=== PATIENT | female | born 1995 | race Caucasian/White ===

== ENCOUNTER 2016-07-09 21:54 | Emergency (ER) | payer SELFPAY ==
--- NOTE | 2016-07-09 23:57 | ED CLINICAL REPORT ---
Clinical Report - Physicians/Mid Levels [facility] [address] [place] [address] 07/09/2016 21:56 Patient: BRIAN BROWN Time Seen: 22:40. Arrived- By private vehicle. Historian- patient. HISTORY OF PRESENT ILLNESS Chief Complaint: DIARRHEA. NAUSEA. This started about 3 days ago and is still present. It was abrupt in onset and has been intermittent and waxing/waning. No recent travel. She has had nausea. No vomiting, black stools, bloody stools, history of possible bad food exposure or known contact with a sick individual. She has had loose stools (green). This has occurred numerous times. Has not recently been camping or on antibiotics. The illness is described as moderate. REVIEW OF SYSTEMS Last normal menstrual period- 6 weeks ago. 3. Para 2. No contraception. She has had chills and palpitations. No fever, sweats, calf pain, chest pain or cough. No difficulty breathing or pedal edema. She has had mild pain with urination. All systems otherwise negative, except as recorded above. PAST HISTORY PCP - None. Additional Surgeries: no known surgeries. Medications: None. Allergies: Penicillins. SOCIAL HISTORY Never smoker. No alcohol use or drug use. FAMILY HISTORY multiple family members with gallstones. ADDITIONAL NOTES The nursing notes have been reviewed. PHYSICAL EXAM Vital Signs: 07/09/2016 22:26 BP: 124/78. HR: 100. RR: 18. O2 saturation: 99%. Temp: 98.8 F. Pain level now: 4/10. Have been reviewed. Appearance: Alert. Eyes: Pupils equal, round and reactive to light. ENT: Pharynx normal. Neck: Normal inspection. Neck supple. CVS: Normal heart rate and rhythm. Heart sounds normal. Pulses normal. Respiratory: No respiratory distress. Breath sounds normal. Abdomen: Soft and nontender. Bowel sounds normal. No organomegaly. No mass. Back: Normal inspection. No CVA tenderness. Skin: Skin warm and dry. Normal skin color. Normal skin turgor. Extremities: Extremities exhibit normal ROM. No calf tenderness. No lower extremity edema. LABS, X-RAYS, AND EKG Laboratory Tests: UA-Culture if indicated: (BRENDON: 07/09/2016 22:50) ( [facility] 07/09/2016 23:11) Final results Test Result Flag Units (Reference) URINE COLOR YELLOW URINE APPEARANCE CLEAR URINE GLUCOSE NEGATIVE (NEGATIVE) URINE BILIRUBIN NEGATIVE (NEGATIVE) URINE KETONE NEGATIVE (NEGATIVE) URINE SPECIFIC GRAVITY >= 1.030 (1.010-1.030) URINE PH 6.0 (5.0-8.0) URINE PROTEIN TRACE (NEGATIVE) URINE UROBILINOGEN 0.2 EU/dL (0.2-1.0) URINE NITRITE NEGATIVE (NEGATIVE) URINE BLOOD NEGATIVE (NEGATIVE) URINE LEUK ESTERASE NEGATIVE (NEGATIVE) URINE RBC 0-1 rbc/hpf (0-1) URINE WBC 0-1 wbc/hpf (0-1) URINE EPITHELIAL CELLS 0-1 EPI/hpf (0-5) URINE BACTERIA TRACE (<1+) (NONE SEEN) URINE COMMENT CULT NOT INDICATED URINE CULTURES ARE SET-UP BASED ON THE FOLLOWING CRITERIA:POSITIVE NITRITEPOSITIVE LEUKOCYTE ESTERASEGREATER THAN 10 WHITE BLOOD CELLSMODERATE (2+) OR GREATER BACTERIA Urine: (BRENDON: 07/09/2016 22:50) ( [facility] 07/09/2016 23:07) Final results Test Result Flag Units (Reference) URINE POSITIVE CBC w Diff: (BRENDON: 07/09/2016 22:50) ( [facility] 07/09/2016 23:12) Final results Test Result Flag Units (Reference) WHITE BLOOD COUNT 6.6 K/uL (4.5-11.5) RED BLOOD COUNT 5.41 H M/uL (4.00-5.20) HEMOGLOBIN 14.3 gm/dL (12.0-16.0) HEMATOCRIT 43.1 % (36.0-46.0) MEAN CELL VOLUME 80 fL (80-100) MEAN CORPUSCULAR HGB 27 pg (26-34) MEAN CORPUSCULAR HGB CONC 33 g/dL (31-37) RED CELL DISTRIBUTION WIDTH 14.2 % (11.6-14.8) PLATELET COUNT 249 K/uL (150-400) LYMPH % 24.4 L % (25-40) MONO % 3.4 % (3-14) GRANULOCYTE % 72.2 (53-90) CMP: (BRENDON: 07/09/2016 22:50) ( MsgRcvd 07/09/2016 23:18) Final results Test Result Flag Units (Reference) GLUCOSE 89 mg/dL (70-110) BUN 17 mg/dL (7-18) CREATININE 0.9 mg/dL (0.6-1.3) Estimated GFR >60 mL/min Estimated GFR- >60 mL/min Note: Persistent reduction over 3 months in eGFR<60 mL/min/1.73 m2 defines CKD. Patients with eGFR values>=60 mL/min/1.73 m2 may also have CKD if evidence ofpersistent proteinuria. Additional information may be foundat www.kidney.org. SODIUM 138 mmol/L (136-145) POTASSIUM 3.6 mmol/L (3.5-5.1) CHLORIDE 102 mmol/L (98-107) CARBON DIOXIDE 23 mmol/L (21-32) CALCIUM 9.0 mg/dL (8.5-10.1) TOTAL PROTEIN 8.3 H g/dL (6.4-8.2) ALBUMIN 3.9 g/dL (3.3-5.0) BILIRUBIN, TOTAL 0.3 mg/dL (0.0-1.0) ALKALINE PHOSPHATASE 75 U/L (46-116) AST (SGOT) 7 L U/L (15-37) ALT (SGPT) 23 U/L (12-78) LIPASE 127 U/L (73-393) AMYLASE 37 U/L (25-115) . PROGRESS AND PROCEDURES Course of Care: Patient is stable. Patient/family counseled. Old medical records ordered. Old records unavailable. Disposition: Discharged. Condition: stable. CLINICAL IMPRESSION Diarrhea ; positive test in emergency department. INSTRUCTIONS Drink plenty of fluids. No alcohol. (collect stool samples and return them to the lab as discussed. Follow up the results of these studies at the [facility] as discussed.). Warnings: Further evaluation is necessary. GENERAL WARNINGS: Return or contact your physician immediately if your condition worsens or changes unexpectedly, if not improving as expected, or if other problems arise. Prescription Medications: Zofran 4 mg: Take 1 orally every six hours as needed for nausea/vomiting. Dispense ten (10). No refills. Substitution is permissible. vitamins: Take 1 orally every day. Dispense thirty (30). No refils. Substitution is permissible. (with folate) Follow-up: Follow up with an logistics planning manager Contact [facility] to arrange for your care is discussed. Call for the next available appointment. Understanding of the discharge instructions verbalized by patient. Follow-up with: [facility], , , [address], [facility], [address] Follow up Wednesday in four days. Call for an appointment. (Electronically signed by Cornelio Sparrow MD 07/10/2016 3:36)
--- NOTE | 2016-07-09 23:57 | ED NURSING NOTES ---
Clinical Report - Nurses [facility] [address] [place] [address] 07/09/2016 21:56 Patient: BRIAN BROWN TRIAGE Triage time 22:Jul 09 2016. Acuity: LEVEL 3. Chief Complaint: ABDOMINAL PAIN. 22:25 07/09/16. SEPSIS SCREEN: Sepsis Screen. Negative (no infection suspected/documented). --22:31 Kassidy Kaplan R.N. 22:26 07/09/16. BP: 124/78. HR: 100. RR: 18. O2 saturation: 99%. Temp: 98.8 F. Pain level now: 08/10. --22:31 Kassidy Kaplan R.N. Weight: 90.7 kg stated. Height/Length: 65 inches Per Patient. BMI: 33.3. --22:25 Kassidy Kaplan R.N. Medications None. --22:28 Kassidy Kaplan R.N. Allergies Penicillins. --22:28 Kassidy Kaplan R.N. Medication/allergy information source: the patient. --22:31 Kassidy Kaplan R.N. History Arrived by private vehicle. Historian: patient. Accompanied by family. Onset. (4 days ago). She has had nausea and abdominal pain. She has had diarrhea (state stool is neon green). No vomiting. Treatment RESEARCH RN SPEC: None. PAST MEDICAL HX: Last normal menstrual period- unknown LMP. 2. Para 2. Sexual history - sexually active. No contraception. Currently . SOCIAL HX: Never smoker. Occasional alcohol use. No drug use. No recent travel. No infectious disease exposure. No known contact with a sick individual. ABUSE ASSESSMENT: No report of abuse. FALL RISK ASSESSMENT: Fall risk assessment completed. No fall risk identified. NUTRITIONAL RISK ASSESSMENT: The nutritional risk assessment revealed no deficiencies. FUNCTIONAL ASSESSMENT: Functional assessment: no impairments noted. LEARNING NEEDS ASSESSMENT: The learning needs assessment revealed no barriers. SKIN INTEGRITY ASSESSMENT: Skin integrity risk assessment completed. No skin integrity risk identified. --22:31 Kassidy Kaplan R.N. PROBLEMS: no known problems. ADDITIONAL SURGERIES: no known surgeries. Interventions ID band on patient. --22:31 Kassidy Kaplan R.N. PHYSICAL ASSESSMENT 22:30 07/09/16. Ambulatory to room. GENERAL / NEURO / PSYCH: Alert. Oriented X 4. Appears in no acute distress. HEENT: Mucous membranes are pink. RESPIRATORY: Respirations not labored. Breath sounds within normal limits. CVS: Capillary refill less than 2 seconds. GI / : The patient has had nausea. Obesity. Abdomen soft. Abdominal tenderness diffusely. No guarding or rebound tenderness. Abnormal bowel sounds present. No rebound tenderness or mass present in the abdominal region. No emesis noted. Abnormal stool color. Stool color is abnormal (states bright neon green). SKIN: Skin is warm and dry. --23:01 Kassidy Kaplan R.N. NURSING PROGRESS NOTES 22:26 07/09/16. The initial plan of care for this patient includes an assessment with efforts to address comfort measures; the presence of pain; impairment of the gastrointestinal system. This plan of care was discussed with the patient. Patient gowned. Reassurance given. Two patient identifiers checked. Call light placed in reach. Side rails up x 1. Bed placed in lowest position. Brakes of bed on. Patient ready for evaluation- ED physician notified. --22:58 Kassidy Kaplan R.N. 22:50 07/09/2016 Site #1 started via IV in the right antecubital space with an 20g angiocath, with aseptic technique and good blood return; one attempt. Blood drawn: rainbow set. Labeled in the presence of the patient and sent to the lab. Saline lock flushed with 10 mL saline. --22:59 Kassidy Kaplan R.N. 22:50 07/09/16. Patient ID band checked for patient name and birthdate: patient confirmed. Instructions provided to collect clean catch urine and patient verbalized understanding. Clean catch urine collected with return of adrienne-colored clear urine; sample sent to lab for urinalysis and HCG. Specimen labeled in the presence of the patient. --22:59 Kassidy Kaplan R.N. 22:55 07/09/2016 Started bag #1 1000 mL IV Fluids IV NS (Saline); at 1000 mL/hr over 30 minute(s) via site #1 via IV pump. Allergies verified and confirmed 5 rights. IV patency established. IV site checked: no pain, redness, or swelling. IV flushed thoroughly pre- and post-medication administration. --23:00 Kassidy Kaplan R.N. 23:21 07/09/2016 IV Fluids IV NS via IV site #1 Rate Changed: bag #1 decreased to 125 mL/hr via IV pump. IV patency established. IV site checked: no pain, redness, or swelling. IV flushed thoroughly. Confirmed 5 Rights. --23:21 Kassidy Kaplan R.N. 23:59 07/09/16. The patient is calm and resting quietly. Overall patient status is the same- she states feels the same. --23:59 Kassidy Kaplan R.N. 00:13 07/10/2016 Site #1 removed upon discharge. Catheter intact. Bandaid applied. --00:13 Kassidy Kaplan R.N. 00:13 07/10/2016 IV Fluids IV NS Discontinued: bag #1 discontinued upon discharge. Total amount infused: 600 mL. IV patency established. IV site checked: no pain, redness, or swelling. IV flushed thoroughly. --00:13 Kassidy Kaplan R.N. DISPOSITION / DISCHARGE 00:14 07/10/16. Condition at departure: improved and stable. No learning barriers present. Discharge instructions provided and reviewed with the patient. Reviewed medication(s) side effects, precautions, dosing and course information. Prescription(s) given to the patient. Reviewed referral to a mental health technician and primary care physician for followup and testing. Summary of care provided to patient via paper. Patient verbalized understanding. Written instructions provided in [place] Korean. The patient was discharged home and accompanied by note specialist. She left the Emergency Department ambulatory and via private vehicle. Artistic Director driving. FALL RISK ASSESSMENT: Fall risk assessment completed. No fall risk identified. --00:14 Kassidy Kaplan R.N. 23:59 07/09/16. BP: 107/66. HR: 100. RR: 18. O2 saturation: 100%. Temp: 98.8 F. Pain level now: 08/10. 22:26 07/09/16. BP: 124/78. HR: 100. RR: 18. O2 saturation: 99%. Temp: 98.8 F. Pain level now: 08/10. --00:14 Kassidy Kaplan R.N. Departure time: 00:14 Jul 10 2016. --00:14 Kassidy Kaplan R.N. Locked/Released at 07/10/2016 0:14 by Kassidy Kaplan R.N.
--- NOTE | 2016-07-09 23:57 | ED ORDER SUMMARY ---
..... Patient: BRIAN BROWN OrderSheet [facility] VisitID: [id number] [place] [address] 21y, F Registration Date/Time: 07/09/2016 ORDER SHEET Weight: 90.7 kg (stated) Allergies: Penicillins GENERAL ORDERS: CBC w Diff Urgent (22:36 07/09/2016 Jamila SIGALA) (Ack 22:42 [facility] [employer] Head Inspector And Adjuster) (22:59 EInderbitzen R.N.) CMP Urgent (22:36 07/09/2016 Jamila SIGALA) (Ack 22:42 Stephanie [facility] [employer] Inspector [employer] Adjuster) (22:59 EInderbitzen R.N.) UA-Culture if indicated Urgent (22:36 07/09/2016 Jamila SIGALA) (Ack 22:42 Stephanie [facility] [employer] Inspector And Adjuster) (22:59 EInderbitzen R.N.) Amylase Urgent (22:36 07/09/2016 Jamila SIGALA) (Ack 22:42 Stephanie ER [employer] Inspector [employer] Adjuster) (22:59 EInderbitzen R.N.) Lipase Urgent (22:36 07/09/2016 Jamila SIGALA) (Ack 22:42 Stephanie ER [employer] Head Inspector And Adjuster) (22:59 EInderbitzen R.N.) Urine Urgent (22:36 07/09/2016 Jamila SIGALA) (Ack 22:42 [facility] [employer] Inspector And Adjuster) (22:59 EInderbitzen R.N.) Serum Quantitative Urgent (23:16 07/09/2016 EInderbitzen R.N. verbal order read back to Jamila SIGALA) (23:19 CH[facility]ty [facility] [employer] Head Inspector And Adjuster) MEDICATION ORDERS: IV FLUIDS: IV Saline Lock (22:36 07/09/2016 Jamila SIGALA) (22:59 EInderbitzen R.N.) IV NS : initial bolus 500 mL (1000 mL/hr), then 125 mL/hr for 4h (NOW); Urgent (22:36 07/09/2016 Jamila SIGALA) (23:00 EInderbitzen R.N.) ORDER SHEET NOTES: [Electronically signed by Kassidy Kaplan R.N. (00:14 07/10/2016)] [Electronically signed by Cornelio Sparrow MD (03:36 07/10/2016)] [Electronically locked/signed by Kassidy Kaplan R.N. (00:14 07/10/2016)]
--- NOTE | 2016-07-09 23:57 | ED NURSING NOTES ---
Clinical Report - Nurses [facility] [address] [place] [place] [address] 07/09/2016 21:56 Patient: BRIAN BROWN TRIAGE Triage time 22:Jul 09 2016. Acuity: LEVEL 3. Chief Complaint: ABDOMINAL PAIN. 22:25 07/09/16. SEPSIS SCREEN: Sepsis Screen. Negative (no infection suspected/documented). --22:31 Kassidy Kaplan R.N. 22:26 07/09/16. BP: 124/78. HR: 100. RR: 18. O2 saturation: 99%. Temp: 98.8 F. Pain level now: 08/10. --22:31 Kassidy Kaplan R.N. Weight: 90.7 kg stated. Height/Length: 65 inches Per Patient. BMI: 33.3. --22:25 Kassidy Kaplan R.N. Medications None. --22:28 Kassidy Kaplan R.N. Allergies Penicillins. --22:28 Kassidy Kaplan R.N. Medication/allergy information source: the patient. --22:31 Kassidy Kaplan R.N. History Arrived by private vehicle. Historian: patient. Accompanied by family. Onset. (4 days ago). She has had nausea and abdominal pain. She has had diarrhea (state stool is neon green). No vomiting. 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 PAST MEDICAL HX: Last normal menstrual period- unknown LMP. 2. Para 2. Sexual history - sexually active. No contraception. Currently . SOCIAL HX: Never smoker. Occasional alcohol use. No drug use. No recent travel. No infectious disease exposure. No known contact with a sick individual. ABUSE ASSESSMENT: No report of abuse. FALL RISK ASSESSMENT: Fall risk assessment completed. No fall risk identified. NUTRITIONAL RISK ASSESSMENT: The nutritional risk assessment revealed no deficiencies. FUNCTIONAL ASSESSMENT: Functional assessment: no impairments noted. LEARNING NEEDS ASSESSMENT: The learning needs assessment revealed no barriers. SKIN INTEGRITY ASSESSMENT: Skin integrity risk assessment completed. No skin integrity risk identified. --22:31 Kassidy Kaplan R.N. PROBLEMS: no known problems. ADDITIONAL SURGERIES: no known surgeries. Interventions ID band on patient. --22:31 Kassidy Kaplan R.N. PHYSICAL ASSESSMENT 22:30 07/09/16. Ambulatory to room. GENERAL / NEURO / PSYCH: Alert. Oriented X 4. Appears in no acute distress. HEENT: Mucous membranes are pink. RESPIRATORY: Respirations not labored. Breath sounds within normal limits. CVS: Capillary refill less than 2 seconds. GI / : The patient has had nausea. Obesity. Abdomen soft. Abdominal tenderness diffusely. No guarding or rebound tenderness. Abnormal bowel sounds present. No rebound tenderness or mass present in the abdominal region. No emesis noted. Abnormal stool color. Stool color is abnormal (states bright neon green). SKIN: Skin is warm and dry. --23:01 Kassidy Kaplan R.N. NURSING PROGRESS NOTES 22:26 07/09/16. The initial plan of care for this patient includes an assessment with efforts to address comfort measures; the presence of pain; impairment of the gastrointestinal system. This plan of care was discussed with the patient. Patient gowned. Reassurance given. Two patient identifiers checked. Call light placed in reach. Side rails up x 1. Bed placed in lowest position. Brakes of bed on. Patient ready for evaluation- ED physician notified. --22:58 Kassidy Kaplan R.N. 22:50 07/09/2016 Site #1 started via IV in the right antecubital space with an 20g angiocath, with aseptic technique and good blood return; one attempt. Blood drawn: rainbow set. Labeled in the presence of the patient and sent to the lab. Saline lock flushed with 10 mL saline. --22:59 Kassidy Kaplan R.N. 22:50 07/09/16. Patient ID band checked for patient name and birthdate: patient confirmed. Instructions provided to collect clean catch urine and patient verbalized understanding. Clean catch urine collected with return of adrienne-colored clear urine; sample sent to lab for urinalysis and HCG. Specimen labeled in the presence of the patient. --22:59 Kassidy Kaplan R.N. 22:55 07/09/2016 Started bag #1 1000 mL IV Fluids IV NS (Saline); at 1000 mL/hr over 30 minute(s) via site #1 via IV pump. Allergies verified and confirmed 5 rights. IV patency established. IV site checked: no pain, redness, or swelling. IV flushed thoroughly pre- and post-medication administration. --23:00 Kassidy Kaplan R.N. 23:21 07/09/2016 IV Fluids IV NS via IV site #1 Rate Changed: bag #1 decreased to 125 mL/hr via IV pump. IV patency established. IV site checked: no pain, redness, or swelling. IV flushed thoroughly. Confirmed 5 Rights. --23:21 Kassidy Kaplan R.N. 23:59 07/09/16. The patient is calm and resting quietly. Overall patient status is the same- she states feels the same. --23:59 Kassidy Kaplan R.N. 00:13 07/10/2016 Site #1 removed upon discharge. Catheter intact. Bandaid applied. --00:13 Kassidy Kaplan R.N. 00:13 07/10/2016 IV Fluids IV NS Discontinued: bag #1 discontinued upon discharge. Total amount infused: 600 mL. IV patency established. IV site checked: no pain, redness, or swelling. IV flushed thoroughly. --00:13 Kassidy Kaplan R.N. DISPOSITION / DISCHARGE 00:14 07/10/16. Condition at departure: improved and stable. No learning barriers present. Discharge instructions provided and reviewed with the patient. Reviewed medication(s) side effects, precautions, dosing and course information. Prescription(s) given to the patient. Reviewed referral to a professor/nurse anesthetist and primary care physician for followup and testing. Summary of care provided to patient via paper. Patient verbalized understanding. Written instructions provided in [place] Islander. The patient was discharged home and accompanied by clinical education coordinator. She left the Emergency Department ambulatory and via private vehicle. Coffee Weigher driving. FALL RISK ASSESSMENT: Fall risk assessment completed. No fall risk identified. --00:14 Kassidy Kaplan R.N. 23:59 07/09/16. BP: 107/66. HR: 100. RR: 18. O2 saturation: 100%. Temp: 98.8 F. Pain level now: 08/10. 22:26 07/09/16. BP: 124/78. HR: 100. RR: 18. O2 saturation: 99%. Temp: 98.8 F. Pain level now: 08/10. --00:14 Kassidy Kaplan R.N. Departure time: 00:14 Jul 10 2016. --00:14 Kassidy Kaplan R.N. Locked/Released at 07/10/2016 0:14 by Kassidy Kaplan R.N.
--- NOTE | 2016-07-09 23:57 | ED ORDER SUMMARY ---
..... Patient: BRIAN BROWN OrderSheet [facility] VisitID: [id number] [place] [address] 21y, F Registration Date/Time: 07/09/2016 ORDER SHEET Weight: 90.7 kg (stated) Allergies: Penicillins GENERAL ORDERS: CBC w Diff Urgent (22:36 07/09/2016 Jamila SIGALA) (Ack 22:42 [facility] [employer] Intel Planner) (22:59 EInderbitzen R.N.) CMP Urgent (22:36 07/09/2016 Jamila SIGALA) (Ack 22:42 Stephanie ER [employer] Planner) (22:59 EInderbitzen R.N.) UA-Culture if indicated Urgent (22:36 07/09/2016 Jamila SIGALA) (Ack 22:42 Stephanie ER [employer] Planner) (22:59 EInderbitzen R.N.) Amylase Urgent (22:36 07/09/2016 Jamila SIGALA) (Ack 22:42 Stephanie ER [employer] Planner) (22:59 EInderbitzen R.N.) Lipase Urgent (22:36 07/09/2016 Jamila SIGALA) (Ack 22:42 Stephanie ER [employer] Planner) (22:59 EInderbitzen R.N.) Urine Urgent (22:36 07/09/2016 Jamila SIGALA) (Ack 22:42 [facility] [employer] Planner) (22:59 EInderbitzen R.N.) Serum Quantitative Urgent (23:16 07/09/2016 EInderbitzen R.N. verbal order read back to Jamila SIGALA) (23:19 CHagerty ER [employer] Planner) MEDICATION ORDERS: IV FLUIDS: IV Saline Lock (22:36 07/09/2016 Jamila SIGALA) (22:59 EInderbitzen R.N.) IV NS : initial bolus 500 mL (1000 mL/hr), then 125 mL/hr for 4h (NOW); Urgent (22:36 07/09/2016 Jamila SIGALA) (23:00 EInderbitzen R.N.) ORDER SHEET NOTES: [Electronically signed by Kassidy Kaplan R.N. (00:14 07/10/2016)] [Electronically signed by Cornelio Sparrow MD (03:36 07/10/2016)] [Electronically locked/signed by Kassidy Kaplan R.N. (00:14 07/10/2016)]
--- NOTE | 2016-07-09 23:57 | ED CLINICAL REPORT ---
Clinical Report - Physicians/Mid Levels [facility] [address] [place] [address] 07/09/2016 21:56 Patient: BRIAN BROWN Time Seen: 22:40. Arrived- By private vehicle. Historian- patient. HISTORY OF PRESENT ILLNESS Chief Complaint: DIARRHEA. NAUSEA. This started about 3 days ago and is still present. It was abrupt in onset and has been intermittent and waxing/waning. No recent travel. She has had nausea. No vomiting, black stools, bloody stools, history of possible bad food exposure or known contact with a sick individual. She has had loose stools (green). This has occurred numerous times. Has not recently been camping or on antibiotics. The illness is described as moderate. REVIEW OF SYSTEMS Last normal menstrual period- 6 weeks ago. 3. Para 2. No contraception. She has had chills and palpitations. No fever, sweats, calf pain, chest pain or cough. No difficulty breathing or pedal edema. She has had mild pain with urination. All systems otherwise negative, except as recorded above. PAST HISTORY PCP - None. Additional Surgeries: no known surgeries. Medications: None. Allergies: Penicillins. SOCIAL HISTORY Never smoker. No alcohol use or drug use. FAMILY HISTORY multiple family members with gallstones. ADDITIONAL NOTES The nursing notes have been reviewed. PHYSICAL EXAM Vital Signs: 07/09/2016 22:26 BP: 124/78. HR: 100. RR: 18. O2 saturation: 99%. Temp: 98.8 F. Pain level now: 4/10. Have been reviewed. Appearance: Alert. Eyes: Pupils equal, round and reactive to light. ENT: Pharynx normal. Neck: Normal inspection. Neck supple. CVS: Normal heart rate and rhythm. Heart sounds normal. Pulses normal. Respiratory: No respiratory distress. Breath sounds normal. Abdomen: Soft and nontender. Bowel sounds normal. No organomegaly. No mass. Back: Normal inspection. No CVA tenderness. Skin: Skin warm and dry. Normal skin color. Normal skin turgor. Extremities: Extremities exhibit normal ROM. No calf tenderness. No lower extremity edema. LABS, X-RAYS, AND EKG Laboratory Tests: UA-Culture if indicated: (BRENDON: 07/09/2016 22:50) ( [facility]/09/2016 23:11) Final results Test Result Flag Units (Reference) URINE COLOR YELLOW URINE APPEARANCE CLEAR URINE GLUCOSE NEGATIVE (NEGATIVE) URINE BILIRUBIN NEGATIVE (NEGATIVE) URINE KETONE NEGATIVE (NEGATIVE) URINE SPECIFIC GRAVITY >= 1.030 (1.010-1.030) URINE PH 6.0 (5.0-8.0) URINE PROTEIN TRACE (NEGATIVE) URINE UROBILINOGEN 0.2 EU/dL (0.2-1.0) URINE NITRITE NEGATIVE (NEGATIVE) URINE BLOOD NEGATIVE (NEGATIVE) URINE LEUK ESTERASE NEGATIVE (NEGATIVE) URINE RBC 0-1 rbc/hpf (0-1) URINE WBC 0-1 wbc/hpf (0-1) URINE EPITHELIAL CELLS 0-1 EPI/hpf (0-5) URINE BACTERIA TRACE (<1+) (NONE SEEN) URINE COMMENT CULT NOT INDICATED URINE CULTURES ARE SET-UP BASED ON THE FOLLOWING CRITERIA:POSITIVE NITRITEPOSITIVE LEUKOCYTE ESTERASEGREATER THAN 10 WHITE BLOOD CELLSMODERATE (2+) OR GREATER BACTERIA Urine: (BRENDON: 07/09/2016 22:50) ( [facility] 07/09/2016 23:07) Final results Test Result Flag Units (Reference) URINE POSITIVE CBC w Diff: (BRENDON: 07/09/2016 22:50) ( [facility] 07/09/2016 23:12) Final results Test Result Flag Units (Reference) WHITE BLOOD COUNT 6.6 K/uL (4.5-11.5) RED BLOOD COUNT 5.41 H M/uL (4.00-5.20) HEMOGLOBIN 14.3 gm/dL (12.0-16.0) HEMATOCRIT 43.1 % (36.0-46.0) MEAN CELL VOLUME 80 fL (80-100) MEAN CORPUSCULAR HGB 27 pg (26-34) MEAN CORPUSCULAR HGB CONC 33 g/dL (31-37) RED CELL DISTRIBUTION WIDTH 14.2 % (11.6-14.8) PLATELET COUNT 249 K/uL (150-400) LYMPH % 24.4 L % (25-40) MONO % 3.4 % (3-14) GRANULOCYTE % 72.2 (53-90) CMP: (BRENDON: 07/09/2016 22:50) ( MsgRcvd 07/09/2016 23:18) Final results Test Result Flag Units (Reference) GLUCOSE 89 mg/dL (70-110) BUN 17 mg/dL (7-18) CREATININE 0.9 mg/dL (0.6-1.3) Estimated GFR >60 mL/min Estimated GFR- >60 mL/min Note: Persistent reduction over 3 months in eGFR<60 mL/min/1.73 m2 defines CKD. Patients with eGFR values>=60 mL/min/1.73 m2 may also have CKD if evidence ofpersistent proteinuria. Additional information may be foundat www.[email or web address].org. SODIUM 138 mmol/L (136-145) POTASSIUM 3.6 mmol/L (3.5-5.1) CHLORIDE 102 mmol/L (98-107) CARBON DIOXIDE 23 mmol/L (21-32) CALCIUM 9.0 mg/dL (8.5-10.1) TOTAL PROTEIN 8.3 H g/dL (6.4-8.2) ALBUMIN 3.9 g/dL (3.3-5.0) BILIRUBIN, TOTAL 0.3 mg/dL (0.0-1.0) ALKALINE PHOSPHATASE 75 U/L (46-116) AST (SGOT) 7 L U/L (15-37) ALT (SGPT) 23 U/L (12-78) LIPASE 127 U/L (73-393) AMYLASE 37 U/L (25-115) . PROGRESS AND PROCEDURES Course of Care: Patient is stable. Patient/family counseled. Old medical records ordered. Old records unavailable. Disposition: Discharged. Condition: stable. CLINICAL IMPRESSION Diarrhea ; positive test in emergency department. INSTRUCTIONS Drink plenty of fluids. No alcohol. (collect stool samples and return them to the lab as discussed. [facility] Warnings: Further evaluation is necessary. GENERAL WARNINGS: Return or contact your physician immediately if your condition worsens or changes unexpectedly, if not improving as expected, or if other problems arise. Prescription Medications: Zofran 4 mg: Take 1 orally every six hours as needed for nausea/vomiting. Dispense ten (10). No refills. Substitution is permissible. vitamins: Take 1 orally every day. Dispense thirty (30). No refils. Substitution is permissible. (with folate) Follow-up: Follow up with an oxide furnace tender Contact [facility] to arrange for your care is discussed. Call for the next available appointment. Understanding of the discharge instructions verbalized by patient. Follow-up with: [facility], , , [address], [place], [id number] Follow up Wednesday in four days. Call for an appointment. (Electronically signed by Cornelio Sparrow MD 07/10/2016 3:36)
--- NOTE | 2016-07-10 03:36 | ED DISCHARGE INSTRUCTIONS ---
Patient: BRIAN BROWN General Instructions [facility] VisitID: [id number] [address] [place] [address] 21y, F Registration Date/Time: 07/09/2016 Diarrhea ; positive test in emergency department. INSTRUCTIONS Drink plenty of fluids. No alcohol. (collect stool samples and return them to the lab as discussed. Follow up the results of these studies at the [facility] as discussed.). Warnings: Further evaluation is necessary. GENERAL WARNINGS: Return or contact your physician immediately if your condition worsens or changes unexpectedly, if not improving as expected, or if other problems arise. Prescription Medications: Zofran 4 mg: Take 1 orally every six hours as needed for nausea/vomiting. Dispense ten (10). No refills. Substitution is permissible. vitamins: Take 1 orally every day. Dispense thirty (30). No refils. Substitution is permissible. (with folate) Follow-up: Follow up with an utility tractor operator Contact [facility] to arrange for your care is discussed. Call for the next available appointment. Understanding of the discharge instructions verbalized by patient. Follow-up with: [facility], , , [address], [place], [id number] Follow up Wednesday in four days. Call for an appointment. ADDITIONAL INFORMATION Diarrhea, Uncertain Cause (Adult, Report Pending) Diarrhea has several possible causes. Commonstomach fluis caused by a virus. Food poisoning, bacteria or parasites are other causes for diarrhea. Only diarrhea caused by bacteria or parasites requires treatment with an antibiotic. Diarrhea from a virus or food poisoning improves with simple home treatment. A stool sample is needed to make the diagnosis of an infection with bacteria or parasites. Up to three stool specimens may be required to diagnose This may take up to two days to get the result. It may be necessary to wait until the stool test is complete to make the diagnosis and select the best antibiotic to prescribe. Home Care: If symptoms are severe, rest at home for the next 24 hours or until you are feeling better. You may use acetaminophen (Tylenol) or ibuprofen (Motrin, Advil) to control fever, unless another medicine was prescribed. [NOTE: If you have chronic liver or kidney disease or ever had a stomach ulcer or GI bleeding, talk with your doctor before using these medicines.] (Aspirin should never be used in anyone under 18 years of age who is ill with a fever. It may cause severe liver damage.) Avoid tobacco, caffeine and alcohol, which may worsen your symptoms. If anti-diarrhea medicine was prescribed, take this only as directed. Sometimes anti-diarrhea medicine can make your condition worse if the cause is an infectious diarrhea. Therefore, anti-diarrhea medicine should not be taken for this condition unless advised by your doctor. During The First 12-24 Hours follow the diet below: BEVERAGES: Sport drinks like Gatorade, soft drinks without caffeine; vikram erick, mineral water (plain or flavored), decaffeinated tea and coffee. SOUPS: Clear broth, consomm and bouillon DESSERTS: Plain gelatin (Jell-O), popsicles and fruit juice bars. During The Next 24 Hours you may add the following to the above: Hot cereal, plain toast, bread, rolls, crackers Plain noodles, rice, mashed potatoes, chicken noodle or rice soup Unsweetened canned fruit (avoid pineapple), bananas Limit fat intake to less than 15 grams per day by avoiding margarine, butter, oils, mayonnaise, sauces, gravies, fried foods, peanut butter, meat, poultry and fish. Limit fiber; avoid raw or cooked vegetables, fresh fruits (except bananas) and bran cereals. Limit caffeine and chocolate. No spices or seasonings except salt. During The Next 24 Hours Gradually resume a normal diet, as you feel better and your symptoms lessen. Follow Up with your doctor or as advised if you are not improving over the next two days. If you were asked to bring a specimen from home, bring the sample on the day of collection. You may call in 2 days (or as directed) for the results. Get Prompt Medical Attention if any of the following occur: Increasing abdominal pain or constant lower right abdominal pain Continued vomiting (unable to keep liquids down) Frequent diarrhea (more than 5 times a day) Blood in vomit or stool (black or red color) Reduced oral intake Dark urine, reduced urine output Weakness, dizziness, fainting Drowsiness, confusion, stiff neck or seizure Fever of 100.4F (38C) oral or higher, not better with fever medication New rash Your exam today shows that you are . During , it is normal to develop tender swollen breasts, frequent urination and mild vaginal discharge. During the first three months, nausea is common. Guidelines For A Healthy : To ensure that your baby is born healthy there are certain things that you can do: When you feel tired, you should REST. This is especially true in the later months of . Your body needs more FLUIDS than you may be used to: You should drink 8-10 glasses of juice, milk or water. Eat well-balanced MEALS at regular intervals to supply your body with enough protein. You can expect a total weight gain of about 30 pounds during the . Do not try to diet or lose weight while you are . Because of the extra nutritional needs during , take one VITAMIN daily. Do not take any other MEDICINE during your (prescribed or [id number]) unless your doctor specifically recommends this. Many drugs can have harmful effects on the growing baby. If NAUSEA or VOMITING become a problem, avoid greasy and fried foods. Eat several smaller meals throughout the day rather than three large meals. If you SMOKE, you must stop. The nicotine you breathe in goes right to the baby. Stay away from ALCOHOL, even in moderate amounts. Daily drinking will harm your baby and can cause permanent brain damage. RECREATIONAL DRUGS are harmful, especially cocaine, crack, and heroin. Marijuana should also be avoided. If you were using recreational drugs or prescribed medicine when you found out that you were , talk to your doctor about possible effects on the fetus. Follow Up: Call to arrange for care. This can be provided by your family doctor, an utility tractor operator ( specialist) or a primary care clinic. Get Prompt Medical Attention if any of the following occur: Vaginal bleeding Moderate or severe abdominal or back pain Excessive vomiting, unable to keep any fluids down for six hours Burning with urination Headache, dizziness or rapid weight gain Your exam today shows that you are . During , it is normal to develop tender swollen breasts, frequent urination and mild vaginal discharge. During the first three months, nausea is common. Guidelines For A Healthy : To ensure that your baby is born healthy there are certain things that you can do: When you feel tired, you should REST. This is especially true in the later months of . Your body needs more FLUIDS than you may be used to: You should drink 8-10 glasses of juice, milk or water. Eat well-balanced MEALS at regular intervals to supply your body with enough protein. You can expect a total weight gain of about 30 pounds during the . Do not try to diet or lose weight while you are . Because of the extra nutritional needs during , take one VITAMIN daily. Do not take any other MEDICINE during your (prescribed or [id number]) unless your doctor specifically recommends this. Many drugs can have harmful effects on the growing baby. If NAUSEA or VOMITING become a problem, avoid greasy and fried foods. Eat several smaller meals throughout the day rather than three large meals. If you SMOKE, you must stop. The nicotine you breathe in goes right to the baby. Stay away from ALCOHOL, even in moderate amounts. Daily drinking will harm your baby and can cause permanent brain damage. RECREATIONAL DRUGS are harmful, especially cocaine, crack, and heroin. Marijuana should also be avoided. If you were using recreational drugs or prescribed medicine when you found out that you were , talk to your doctor about possible effects on the fetus. Follow Up: Call to arrange for care. This can be provided by your family doctor, an utility tractor operator ( specialist) or a primary care clinic. Get Prompt Medical Attention if any of the following occur: Vaginal bleeding Moderate or severe abdominal or back pain Excessive vomiting, unable to keep any fluids down for six hours Burning with urination Headache, dizziness or rapid weight gain Ondansetron Oral disintegrating tablet What is this medicine? ONDANSETRON (on KISHORE se velvet) is used to treat nausea and vomiting caused by chemotherapy. It is also used to prevent or treat nausea and vomiting after surgery. How should I use this medicine? These tablets are made to dissolve in the mouth. Do not try to push the tablet through the foil backing. With dry hands, peel away the foil backing and gently remove the tablet. Place the tablet in the mouth and allow it to dissolve, then swallow. While you may take these tablets with water, it is not necessary to do so. Talk to your lap cutter truer operator regarding the use of this medicine in children. Special care may be needed. What side effects may I notice from receiving this medicine? Side effects that you should report to your doctor or health animal care provider as soon as possible: allergic reactions like skin rash, itching or hives, swelling of the face, lips, or tongue breathing problems dizziness fast or irregular heartbeat feeling faint or lightheaded, falls fever and chills swelling of the hands and feet tightness in the chest Side effects that usually do not require medical attention (report to your doctor or health animal care provider if they continue or are bothersome): constipation or diarrhea headache What may interact with this medicine? Do not take this medicine with any of the following medications: -apomorphine -cisapride -dofetilide -dronedarone -pimozide -thioridazine -ziprasidone This medicine may also interact with the following medications: -carbamazepine -phenytoin -rifampicin -tramadol -other medicines that prolong the QT interval (cause an abnormal heart rhythm) What if I miss a dose? If you miss a dose, take it as soon as you can. If it is almost time for your next dose, take only that dose. Do not take double or extra doses. Where should I keep my medicine? Keep out of the reach of children. Store between 2 and 30 degrees C (36 and 86 degrees F). Throw away any unused medicine after the expiration date. What should I tell my health care provider before I take this medicine? They need to know if you have any of these conditions: heart disease history of irregular heartbeat liver disease low levels of magnesium or potassium in the blood an unusual or allergic reaction to ondansetron, granisetron, other medicines, foods, dyes, or preservatives or trying to get breast-feeding What should I watch for while using this medicine? Check with your doctor or health animal care provider as soon as you can if you have any sign of an allergic reaction. You have been given the following additional information: Diarrhea, Unk Cause (Adult) Report Pendg , New Dx , New Dx Ondansetron Oral disintegrating tablet (Electronically signed by Cornelio Sparrow MD 07/10/2016 3:36)
--- NOTE | 2016-07-10 03:36 | ED DISCHARGE INSTRUCTIONS ---
Patient: BRIAN BROWN General Instructions [facility] VisitID: [id number] [address] [place] [address] 21y, F Registration Date/Time: 07/09/2016 Diarrhea ; positive test in emergency department. INSTRUCTIONS Drink plenty of fluids. No alcohol. (collect stool samples and return them to the lab as discussed. Follow up the results of these studies at the [facility] as discussed.). Warnings: Further evaluation is necessary. GENERAL WARNINGS: Return or contact your physician immediately if your condition worsens or changes unexpectedly, if not improving as expected, or if other problems arise. Prescription Medications: Zofran 4 mg: Take 1 orally every six hours as needed for nausea/vomiting. Dispense ten (10). No refills. Substitution is permissible. vitamins: Take 1 orally every day. Dispense thirty (30). No refils. Substitution is permissible. (with folate) Follow-up: Follow up with an actionscript developer Contact [facility] to arrange for your care is discussed. Call for the next available appointment. Understanding of the discharge instructions verbalized by patient. Follow-up with: [facility], , , [address], [place], [address] Follow up Wednesday in four days. Call for an appointment. ADDITIONAL INFORMATION Diarrhea, Uncertain Cause (Adult, Report Pending) Diarrhea has several possible causes. Commonstomach fluis caused by a virus. Food poisoning, bacteria or parasites are other causes for diarrhea. Only diarrhea caused by bacteria or parasites requires treatment with an antibiotic. Diarrhea from a virus or food poisoning improves with simple home treatment. A stool sample is needed to make the diagnosis of an infection with bacteria or parasites. Up to three stool specimens may be required to diagnose This may take up to two days to get the result. It may be necessary to wait until the stool test is complete to make the diagnosis and select the best antibiotic to prescribe. Home Care: If symptoms are severe, rest at home for the next 24 hours or until you are feeling better. You may use acetaminophen (Tylenol) or ibuprofen (Motrin, Advil) to control fever, unless another medicine was prescribed. [NOTE: If you have chronic liver or kidney disease or ever had a stomach ulcer or GI bleeding, talk with your doctor before using these medicines.] (Aspirin should never be used in anyone under 18 years of age who is ill with a fever. It may cause severe liver damage.) Avoid tobacco, caffeine and alcohol, which may worsen your symptoms. If anti-diarrhea medicine was prescribed, take this only as directed. Sometimes anti-diarrhea medicine can make your condition worse if the cause is an infectious diarrhea. Therefore, anti-diarrhea medicine should not be taken for this condition unless advised by your doctor. During The First 12-24 Hours follow the diet below: BEVERAGES: Sport drinks like Gatorade, soft drinks without caffeine; vikram erick, mineral water (plain or flavored), decaffeinated tea and coffee. SOUPS: Clear broth, consomm and bouillon DESSERTS: Plain gelatin (Jell-O), popsicles and fruit juice bars. During The Next 24 Hours you may add the following to the above: Hot cereal, plain toast, bread, rolls, crackers Plain noodles, rice, mashed potatoes, chicken noodle or rice soup Unsweetened canned fruit (avoid pineapple), bananas Limit fat intake to less than 15 grams per day by avoiding margarine, butter, oils, mayonnaise, sauces, gravies, fried foods, peanut butter, meat, poultry and fish. Limit fiber; avoid raw or cooked vegetables, fresh fruits (except bananas) and bran cereals. Limit caffeine and chocolate. No spices or seasonings except salt. During The Next 24 Hours Gradually resume a normal diet, as you feel better and your symptoms lessen. Follow Up with your doctor or as advised if you are not improving over the next two days. If you were asked to bring a specimen from home, bring the sample on the day of collection. You may call in 2 days (or as directed) for the results. Get Prompt Medical Attention if any of the following occur: Increasing abdominal pain or constant lower right abdominal pain Continued vomiting (unable to keep liquids down) Frequent diarrhea (more than 5 times a day) Blood in vomit or stool (black or red color) Reduced oral intake Dark urine, reduced urine output Weakness, dizziness, fainting Drowsiness, confusion, stiff neck or seizure Fever of 100.4F (38C) oral or higher, not better with fever medication New rash Your exam today shows that you are . During , it is normal to develop tender swollen breasts, frequent urination and mild vaginal discharge. During the first three months, nausea is common. Guidelines For A Healthy : To ensure that your baby is born healthy there are certain things that you can do: When you feel tired, you should REST. This is especially true in the later months of . Your body needs more FLUIDS than you may be used to: You should drink 8-10 glasses of juice, milk or water. Eat well-balanced MEALS at regular intervals to supply your body with enough protein. You can expect a total weight gain of about 30 pounds during the . Do not try to diet or lose weight while you are . Because of the extra nutritional needs during , take one VITAMIN daily. Do not take any other MEDICINE during your (prescribed or [id number]) unless your doctor specifically recommends this. Many drugs can have harmful effects on the growing baby. If NAUSEA or VOMITING become a problem, avoid greasy and fried foods. Eat several smaller meals throughout the day rather than three large meals. If you SMOKE, you must stop. The nicotine you breathe in goes right to the baby. Stay away from ALCOHOL, even in moderate amounts. Daily drinking will harm your baby and can cause permanent brain damage. RECREATIONAL DRUGS are harmful, especially cocaine, crack, and heroin. Marijuana should also be avoided. If you were using recreational drugs or prescribed medicine when you found out that you were , talk to your doctor about possible effects on the fetus. Follow Up: Call to arrange for care. This can be provided by your family doctor, an actionscript developer ( specialist) or a primary care clinic. Get Prompt Medical Attention if any of the following occur: Vaginal bleeding Moderate or severe abdominal or back pain Excessive vomiting, unable to keep any fluids down for six hours Burning with urination Headache, dizziness or rapid weight gain Your exam today shows that you are . During , it is normal to develop tender swollen breasts, frequent urination and mild vaginal discharge. During the first three months, nausea is common. Guidelines For A Healthy : To ensure that your baby is born healthy there are certain things that you can do: When you feel tired, you should REST. This is especially true in the later months of . Your body needs more FLUIDS than you may be used to: You should drink 8-10 glasses of juice, milk or water. Eat well-balanced MEALS at regular intervals to supply your body with enough protein. You can expect a total weight gain of about 30 pounds during the . Do not try to diet or lose weight while you are . Because of the extra nutritional needs during , take one VITAMIN daily. Do not take any other MEDICINE during your (prescribed or [id number]-[id number]) unless your doctor specifically recommends this. Many drugs can have harmful effects on the growing baby. If NAUSEA or VOMITING become a problem, avoid greasy and fried foods. Eat several smaller meals throughout the day rather than three large meals. If you SMOKE, you must stop. The nicotine you breathe in goes right to the baby. Stay away from ALCOHOL, even in moderate amounts. Daily drinking will harm your baby and can cause permanent brain damage. RECREATIONAL DRUGS are harmful, especially cocaine, crack, and heroin. Marijuana should also be avoided. If you were using recreational drugs or prescribed medicine when you found out that you were , talk to your doctor about possible effects on the fetus. Follow Up: Call to arrange for care. This can be provided by your family doctor, an actionscript developer ( specialist) or a primary care clinic. Get Prompt Medical Attention if any of the following occur: Vaginal bleeding Moderate or severe abdominal or back pain Excessive vomiting, unable to keep any fluids down for six hours Burning with urination Headache, dizziness or rapid weight gain Ondansetron Oral disintegrating tablet What is this medicine? ONDANSETRON (on KISHORE se velvet) is used to treat nausea and vomiting caused by chemotherapy. It is also used to prevent or treat nausea and vomiting after surgery. How should I use this medicine? These tablets are made to dissolve in the mouth. Do not try to push the tablet through the foil backing. With dry hands, peel away the foil backing and gently remove the tablet. Place the tablet in the mouth and allow it to dissolve, then swallow. While you may take these tablets with water, it is not necessary to do so. Talk to your tube drawer regarding the use of this medicine in children. Special care may be needed. What side effects may I notice from receiving this medicine? Side effects that you should report to your doctor or health home health care provider as soon as possible: allergic reactions like skin rash, itching or hives, swelling of the face, lips, or tongue breathing problems dizziness fast or irregular heartbeat feeling faint or lightheaded, falls fever and chills swelling of the hands and feet tightness in the chest Side effects that usually do not require medical attention (report to your doctor or health home health care provider if they continue or are bothersome): constipation or diarrhea headache What may interact with this medicine? Do not take this medicine with any of the following medications: -apomorphine -cisapride -dofetilide -dronedarone -pimozide -thioridazine -ziprasidone This medicine may also interact with the following medications: -carbamazepine -phenytoin -rifampicin -tramadol -other medicines that prolong the QT interval (cause an abnormal heart rhythm) What if I miss a dose? If you miss a dose, take it as soon as you can. If it is almost time for your next dose, take only that dose. Do not take double or extra doses. Where should I keep my medicine? Keep out of the reach of children. Store between 2 and 30 degrees C (36 and 86 degrees F). Throw away any unused medicine after the expiration date. What should I tell my health care provider before I take this medicine? They need to know if you have any of these conditions: heart disease history of irregular heartbeat liver disease low levels of magnesium or potassium in the blood an unusual or allergic reaction to ondansetron, granisetron, other medicines, foods, dyes, or preservatives or trying to get breast-feeding What should I watch for while using this medicine? Check with your doctor or health home health care provider as soon as you can if you have any sign of an allergic reaction. You have been given the following additional information: Diarrhea, Unk Cause (Adult) Report Pendg , New Dx , New Dx Ondansetron Oral disintegrating tablet (Electronically signed by Cornelio Sparrow MD 07/10/2016 3:36)
--- NOTE | 2016-07-10 03:36 | ED MAR SUMMARY ---
..... Medication Administration Record [facility] [address] [place] [address] Patient: BRIAN BROWN Visit ID: [id number] 21y, F Weight: 90.7 kg Height/Length: 65 in BMI: 33.3 ALLERGIES: Penicillins Start 22:55 07/09/2016 Kassidy Kaplan RDelmi, Stop 00:13 07/10/2016 Kassidy Kaplan R.N. Medication Administered: IV NS (SALINE), Dose: IV Fluids over 30 minute(s), Rate: 1000 mL/hr, Dispensed: 1000 mL bag, Site: #1 right AC. Medication Ordered: IV NS : initial bolus 500 mL (1000 mL/hr), then 125 mL/hr for 4h (NOW); Urgent.
--- NOTE | 2016-07-10 03:36 | ED MED RECONCILIATION SUMMARY ---
Patient: BRIAN BROWN Medication Reconciliation Report [facility] VisitID: [id number] [place] [address] 21y, F Registration Date/Time: 07/09/2016 Weight: 90.7 kg Height/Length: 65 in. BMI: 33.3 ALLERGIES: Penicillins The patient's Home Medications are listed below: NONE. The source(s) of the original Home Medication information: patient The following Medications were given to the patient in the Emergency Department: IV NS IV Fluids bolus 0, then 1000 mL/hr, administered: 07/09/2016 10:55:00 PM The following Medications were prescribed to the patient: Zofran 4 mg: Take 1 orally every six hours as needed for nausea/vomiting. Dispense ten (10). No refills. Substitution is permissible. -- Cornelio Sparrow MD vitamins: Take 1 orally every day. Dispense thirty (30). No refils. Substitution is permissible.(with folate) -- Cornelio Sparrow MD
--- NOTE | 2016-07-10 03:36 | ED MED RECONCILIATION SUMMARY ---
Patient: BRIAN BROWN Medication Reconciliation Report [facility] VisitID: [id number] [place] [address] 21y, F Registration Date/Time: 07/09/2016 Weight: 90.7 kg Height/Length: 65 in. BMI: 33.3 ALLERGIES: Penicillins The patient's Home Medications are listed below: NONE. The source(s) of the original Home Medication information: patient The following Medications were given to the patient in the Emergency Department: IV NS IV Fluids bolus 0, then 1000 mL/hr, administered: 07/09/2016 10:55:00 PM The following Medications were prescribed to the patient: Zofran 4 mg: Take 1 orally every six hours as needed for nausea/vomiting. Dispense ten (10). No refills. Substitution is permissible. -- Cornelio Sparrow MD vitamins: Take 1 orally every day. Dispense thirty (30). No refils. Substitution is permissible.(with folate) -- Cornelio Sparrow MD
--- NOTE | 2016-07-10 03:36 | ED MAR SUMMARY ---
..... Medication Administration Record [facility] [address] [place] [address] Patient: BRIAN BROWN Visit ID: [id number] 21y, F Weight: 90.7 kg Height/Length: 65 in BMI: 33.3 ALLERGIES: Penicillins Start 22:55 07/09/2016 Kassidy Kaplan RDelmi, Stop 00:13 07/10/2016 Kassidy Kaplan R.N. Medication Administered: IV NS (SALINE), Dose: IV Fluids over 30 minute(s), Rate: 1000 mL/hr, Dispensed: 1000 mL bag, Site: #1 right AC. Medication Ordered: IV NS : initial bolus 500 mL (1000 mL/hr), then 125 mL/hr for 4h (NOW); Urgent.
== END 2016-07-10 00:15 | disposition home or self-care (01) ==
LOC: ED SRH 21:54
DX: O99.611 Diseases of the digestive system complicating pregnancy, first trimester (principal); R19.7 Diarrhea, unspecified; Z32.01 Encounter for pregnancy test, result positive
CPT/HCPCS: 90004; 90100; 90197; 92235; 92530; 93070; 95059

== ENCOUNTER 2016-08-18 09:46 | Emergency (ER) | payer SELFPAY ==
--- NOTE | 2016-08-18 11:03 | ED NURSING NOTES ---
Clinical Report - Nurses [facility] [address] [place] [address] 08/18/2016 9:47 Patient: BRIAN BROWN TRIAGE Triage time 09:51. Acuity: LEVEL 4. Chief Complaint: JAW PAIN. 09:52 08/18/16. 09:52 08/18/16. Alert. No acute distress. BRITTNEY COMA SCORE: [place] Coma Scale: 15- eyes open spontaneously (4); best verbal response- oriented x 4 (5); best motor response- obeys commands (6). --09:56 Mil Nieto R.N. 09:51 08/18/16. BP: 123/81. HR: 83. RR: 18. O2 saturation: 98% on room air. Temp: 98.1 F (oral). Pain level now: 10. --09:56 Mil Nieto R.N. Weight: 86.1 kg stated. Height/Length: 65 inches Per Patient. BMI: 31.6. --09:51 Mil Nieto R.N. Medications None. --09:53 Mil Nieto R.N. Medication/allergy information source: the patient. --09:56 Mil Nieto R.N. Allergies Penicillins. --09:53 Mil Nieto R.N. History Arrived by private vehicle, and accompanied by friend. 09:52 08/18/16. ( 2 weeks ago). She has no dental appointment scheduled. Treatment SWITCHING OPERATOR: None. PAST MEDICAL HX: Last normal menstrual period- Unknown. Currently . Immunizations not up to date. ( Pt states she is 10 weeks ). SOCIAL HX: Never smoker. No alcohol use or drug use. No infectious disease exposure. ABUSE ASSESSMENT: No report of abuse. FALL RISK ASSESSMENT: Fall risk assessment completed. No fall risk identified. NUTRITIONAL RISK ASSESSMENT: The nutritional risk assessment revealed no deficiencies. FUNCTIONAL ASSESSMENT: Functional assessment: no impairments noted. LEARNING NEEDS ASSESSMENT: The learning needs assessment revealed no barriers. SKIN INTEGRITY ASSESSMENT: Skin integrity risk assessment completed. No skin integrity risk identified. --09:56 Mil Nieto R.N. PROBLEMS: Diarrhea. . --09:53 Mil Nieto R.N. ADDITIONAL SURGERIES: no known surgeries. Assessment 09:52 08/18/16. --09:56 Mil Nieto R.N. Interventions 09:52 08/18/16. 09:52 08/18/16. ID and allergy band on patient. To treatment room. --09:56 Mli Nieto R.N. PHYSICAL ASSESSMENT 09:53 08/18/16. Ambulatory to room. GENERAL / NEURO / PSYCH: Alert. Oriented X 4. Appears in no acute distress. HEENT: Facial swelling present Right Jaw Pain. CVS: Capillary refill less than 2 seconds. SKIN: Skin is warm and dry. --09:53 Mil Nieto R.N. NURSING PROGRESS NOTES 09:53 08/18/16. The plan of care for this patient has been created. Head of bed elevated. Reassurance given. Two patient identifiers checked. Call light placed in reach. Side rails up x 2. Bed placed in lowest position. Brakes of bed on. --09:53 Mil Nieto R.N. 09:53 08/18/16. Patient ready for evaluation- chart flagged and notification provided. --09:53 Mli Nieto R.N. 09:56 08/18/16. ( Dental Referral Sheet given to patient). --09:56 Mil Nieto R.N. 10:33 08/18/16. Patient waiting for disposition. --10:33 Mil Nieto R.N. 11:08/18/2016 Hydrocodone-APAP (Hydrocodone-Acetaminophen) PO 10/650 mg Tablets 2 tab given. Allergies verified, confirmed 5 rights and sedative warning given to the patient. --11:01 Mil Nieto R.N. 11:08/18/2016 Cleocin (Clindamycin HCl) PO 300 mg given. Allergies verified and confirmed 5 rights. --11:01 Mil Nieto R.N. DISPOSITION / DISCHARGE 11:08/18/16. Condition at departure: improved. The goals identified in the patient's plan of care were met. No learning barriers present. Discharge instructions provided and reviewed with salesperson fashion accessories and the patient. Reviewed warnings. Reviewed medication(s). Treatments reviewed. Reviewed referral to a dentist. Patient and salesperson fashion accessories verbalized understanding. Written instructions provided in Brazilian. The patient was discharged by the physician. She was discharged home and accompanied by salesperson fashion accessories. She left the Emergency Department ambulatory and via private vehicle. Structural Engineering Project Manager driving. FALL RISK ASSESSMENT: Fall risk assessment completed. No fall risk identified. --11:10 Mil Nieto R.N. 11:09 08/18/16. BP: 116/68. HR: 72. RR: 14. O2 saturation: 99% on room air. Temp: 98.2 F (oral). Pain level now: 07/10. --11:10 Mil Nieto R.N. 11:10 08/18/16. Departure time: 11:10. --11:10 Mil Nieto R.N. Locked/Released at 08/18/2016 11:12 by Mil Nieto R.N.
--- NOTE | 2016-08-18 11:03 | ED ORDER SUMMARY ---
..... Patient: BRIAN BROWN OrderSheet [facility] VisitID: [id number] [address] [place] [address] 21y, F Registration Date/Time: 08/18/2016 ORDER SHEET Weight: 86.1 kg (stated) Allergies: Penicillins GENERAL ORDERS: MEDICATION ORDERS: Hydrocodone-APAP PO 10/650 mg (NOW) (10:54 08/18/2016 Susan SIGALA) (Ack 10:58 JBoardley R.N.) (11:01 JBoardley R.N.) Cleocin PO 300 mg (NOW) (10:58 08/18/2016 Susan SIGALA) (Ack 11:00 JBoardley R.N.) (11:01 JBoardley R.N.) IV FLUIDS: ORDER SHEET NOTES: [Electronically signed by Mil Nieto R.N. (11:12 08/18/2016)] [Electronically signed by Trevor Zavala MD (21:16 08/19/2016)] [Electronically locked/signed by Mil Nieto R.N. (11:12 08/18/2016)]
--- NOTE | 2016-08-18 11:03 | ED ORDER SUMMARY ---
..... Patient: BRIAN BROWN OrderSheet [facility] VisitID: [id number] [address] [place] [address] 21y, F Registration Date/Time: 08/18/2016 ORDER SHEET Weight: 86.1 kg (stated) Allergies: Penicillins GENERAL ORDERS: MEDICATION ORDERS: Hydrocodone-APAP PO 10/650 mg (NOW) (10:54 08/18/2016 Susan SIGALA) (Ack 10:58 JBoardley R.N.) (11:01 JBoardley R.N.) Cleocin PO 300 mg (NOW) (10:58 08/18/2016 Susan SIGALA) (Ack 11:00 JBoardley R.N.) (11:01 JBoardley R.N.) IV FLUIDS: ORDER SHEET NOTES: [Electronically signed by Mil Nieto R.N. (11:12 08/18/2016)] [Electronically signed by Trevor Zavala MD (21:16 08/19/2016)] [Electronically locked/signed by Mil Nieto R.N. (11:12 08/18/2016)]
--- NOTE | 2016-08-18 11:03 | ED CLINICAL REPORT ---
Clinical Report - Physicians/Mid Levels [facility] [address] [place] [address] 08/18/2016 9:47 Patient: BRIAN BROWN Time Seen: 10:15 Aug 18 2016. Arrived- By private vehicle. Historian- patient. CPT: ER phys charges level 3 plus (#[id number]). HISTORY OF PRESENT ILLNESS Chief Complaint: DENTAL PAIN. 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 Pain described as moderate. No sore throat. She has had toothache and swelling of the face. Similar symptoms previously: None. Recent medical care: Not recently seen/assessed. REVIEW OF SYSTEMS No fever, cough, difficulty breathing, chest pain or nausea. No diarrhea, abdominal pain, joint pain, skin rash or enlarged lymph nodes. All systems otherwise negative, except as recorded above. PAST HISTORY Diarrhea. . Additional Surgeries: no known surgeries. Medications: None. Allergies: Penicillins. SOCIAL HISTORY Never smoker. No alcohol use or drug use. ADDITIONAL NOTES The nursing notes have been reviewed. PHYSICAL EXAM Vital Signs: 08/18/2016 09:51 BP: 123/81. HR: 83. RR: 18. O2 saturation: 98%. Temp: 98.1 F. Pain level now: 5/10. Appearance: Alert. Patient in moderate distress. Head: Moderate swelling of the right maxilla. Eyes: Pupils equal, round and reactive to light. Conjunctivae and eyelids normal. ENT: Moderate, localized dental decay with gingival tenderness, swelling and fluctuance (upper right second premolar). Moderate dental tenderness of a single tooth with gingival tenderness (upper right second premolar). Nose normal. Pharynx normal. Lips normal. Uvula midline. Neck: No adenopathy. CVS: Normal heart rate and rhythm. Heart sounds normal. Pulses normal. Respiratory: No respiratory distress. Breath sounds normal. Chest nontender. Abdomen: Soft. Skin: Normal skin color. No rash. Extremities: Extremities exhibit normal ROM. Extremities nontender. Neuro: Oriented X 3. No motor deficit. No sensory deficit. PROGRESS AND PROCEDURES Course of Care: After topical benzocaine anesthesia the dental abscess was aspirated with an 18g needle, little return. 10 minute discussion on teratogenic effects of medicatons and patient wants to proceed with antibiotics and pain medication. Patient/family counseled. Disposition: Discharged. Condition: stable. CLINICAL IMPRESSION Periapical dental abscess with sinus tract. 9 week . INSTRUCTIONS Apply moist heat for 15-20 minutes three times a day for one weeks until better. Drink plenty of fluids. Warnings: Further evaluation is necessary. SEDATIVE MEDICATION: You were given sedative medication during your visit. Do not drive or operate dangerous machinery. GENERAL WARNINGS: Return or contact your physician immediately if your condition worsens or changes unexpectedly, if not improving as expected, or if other problems arise. Prescription Medications: Hydrocodone/APAP 5mg/325mg: take 1 to 2 orally every 6 hours as needed for pain. Dispense fifteen (15). No refills. Cleocin 300 mg: take 1 capsule orally every 6 hours for 7 days. No refills. Substitution is permissible. Follow-up: Follow up with a dentist. Call for the next available appointment. Understanding of the discharge instructions verbalized by patient. Discharge instructions reviewed (family). Follow-up with: [facility], , , [address], [facility], [id number] Follow up Wednesday in three days. Call for the next available appointment. Reason for referral: for dental labscess. (Electronically signed by Trevor Zavala MD 08/19/2016 21:16)
--- NOTE | 2016-08-18 11:03 | ED NURSING NOTES ---
Clinical Report - Nurses Located Within [facility] [address] [place] [address] 08/18/2016 9:47 Patient: BRINA BROWN TRIAGE Triage time 09:51. Acuity: LEVEL 4. Chief Complaint: JAW PAIN. 09:52 08/18/16. 09:52 08/18/16. Alert. No acute distress. BRITTNEY COMA SCORE: [place] Coma Scale: 15- eyes open spontaneously (4); best verbal response- oriented x 4 (5); best motor response- obeys commands (6). --09:56 Mil Nieto R.N. 09:51 08/18/16. BP: 123/81. HR: 83. RR: 18. O2 saturation: 98% on room air. Temp: 98.1 F (oral). Pain level now: 10. --09:56 Mil Nieto R.N. Weight: 86.1 kg stated. Height/Length: 65 inches Per Patient. BMI: 31.6. --09:51 Mil Nieto R.N. Medications None. --09:53 Mil Nieto R.N. Medication/allergy information source: the patient. --09:56 Mil Nieto R.N. Allergies Penicillins. --09:53 Mil Nieto R.N. History Arrived by private vehicle, and accompanied by friend. 09:52 08/18/16. ( 2 weeks ago). She has no dental appointment scheduled. 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 PAST MEDICAL HX: Last normal menstrual period- Unknown. Currently . Immunizations not up to date. ( Pt states she is 10 weeks ). SOCIAL HX: Never smoker. No alcohol use or drug use. No infectious disease exposure. ABUSE ASSESSMENT: No report of abuse. FALL RISK ASSESSMENT: Fall risk assessment completed. No fall risk identified. NUTRITIONAL RISK ASSESSMENT: The nutritional risk assessment revealed no deficiencies. FUNCTIONAL ASSESSMENT: Functional assessment: no impairments noted. LEARNING NEEDS ASSESSMENT: The learning needs assessment revealed no barriers. SKIN INTEGRITY ASSESSMENT: Skin integrity risk assessment completed. No skin integrity risk identified. --09:56 Mil Nieto R.N. PROBLEMS: Diarrhea. . --09:53 Mil Nieto R.N. ADDITIONAL SURGERIES: no known surgeries. Assessment 09:52 08/18/16. --09:56 Mil Nieto R.N. Interventions 09:52 08/18/16. 09:52 08/18/16. ID and allergy band on patient. To treatment room. --09:56 Mil Nieto R.N. PHYSICAL ASSESSMENT 09:53 08/18/16. Ambulatory to room. GENERAL / NEURO / PSYCH: Alert. Oriented X 4. Appears in no acute distress. HEENT: Facial swelling present Right Jaw Pain. CVS: Capillary refill less than 2 seconds. SKIN: Skin is warm and dry. --09:53 Mil Nieto R.N. NURSING PROGRESS NOTES 09:53 08/18/16. The plan of care for this patient has been created. Head of bed elevated. Reassurance given. Two patient identifiers checked. Call light placed in reach. Side rails up x 2. Bed placed in lowest position. Brakes of bed on. --09:53 Mil Nieto R.N. 09:53 08/18/16. Patient ready for evaluation- chart flagged and notification provided. --09:53 Mil Nieto R.N. 09:56 08/18/16. ( Dental Referral Sheet given to patient). --09:56 Mil Nieto R.N. 10:33 08/18/16. Patient waiting for disposition. --10:33 Mil Nieto R.N. 11:08/18/2016 Hydrocodone-APAP (Hydrocodone-Acetaminophen) PO 10/650 mg Tablets 2 tab given. Allergies verified, confirmed 5 rights and sedative warning given to the patient. --11:01 Mil Nieto R.N. 11:08/18/2016 Cleocin (Clindamycin HCl) PO 300 mg given. Allergies verified and confirmed 5 rights. --11:01 Mil Nieto R.N. DISPOSITION / DISCHARGE 11:08/18/16. Condition at departure: improved. The goals identified in the patient's plan of care were met. No learning barriers present. Discharge instructions provided and reviewed with music agent and the patient. Reviewed warnings. Reviewed medication(s). Treatments reviewed. Reviewed referral to a dentist. Patient and music agent verbalized understanding. Written instructions provided in [place]. The patient was discharged by the physician. She was discharged home and accompanied by music agent. She left the Emergency Department ambulatory and via private vehicle. Court Registry Officer driving. FALL RISK ASSESSMENT: Fall risk assessment completed. No fall risk identified. --11:10 Mil Nieto R.N. 11:09 08/18/16. BP: 116/68. HR: 72. RR: 14. O2 saturation: 99% on room air. Temp: 98.2 F (oral). Pain level now: 07/10. --11:10 Mil Nieto R.N. 11:10 08/18/16. Departure time: 11:10. --11:10 Mil Nieto R.N. Locked/Released at 08/18/2016 11:12 by Mil Nieto R.N.
--- NOTE | 2016-08-18 11:03 | ED CLINICAL REPORT ---
Clinical Report - Physicians/Mid Levels [facility] [address] [place] [address] 08/18/2016 9:47 Patient: BRIAN BROWN Time Seen: 10:15 Aug 18 2016. Arrived- By private vehicle. Historian- patient. CPT: ER phys charges level 3 plus (#[id number]). HISTORY OF PRESENT ILLNESS Chief Complaint: DENTAL PAIN. 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 Pain described as moderate. No sore throat. She has had toothache and swelling of the face. Similar symptoms previously: None. Recent medical care: Not recently seen/assessed. REVIEW OF SYSTEMS No fever, cough, difficulty breathing, chest pain or nausea. No diarrhea, abdominal pain, joint pain, skin rash or enlarged lymph nodes. All systems otherwise negative, except as recorded above. PAST HISTORY Diarrhea. . Additional Surgeries: no known surgeries. Medications: None. Allergies: Penicillins. SOCIAL HISTORY Never smoker. No alcohol use or drug use. ADDITIONAL NOTES The nursing notes have been reviewed. PHYSICAL EXAM Vital Signs: 08/18/2016 09:51 BP: 123/81. HR: 83. RR: 18. O2 saturation: 98%. Temp: 98.1 F. Pain level now: 5/10. Appearance: Alert. Patient in moderate distress. Head: Moderate swelling of the right maxilla. Eyes: Pupils equal, round and reactive to light. Conjunctivae and eyelids normal. ENT: Moderate, localized dental decay with gingival tenderness, swelling and fluctuance (upper right second premolar). Moderate dental tenderness of a single tooth with gingival tenderness (upper right second premolar). Nose normal. Pharynx normal. Lips normal. Uvula midline. Neck: No adenopathy. CVS: Normal heart rate and rhythm. Heart sounds normal. Pulses normal. Respiratory: No respiratory distress. Breath sounds normal. Chest nontender. Abdomen: Soft. Skin: Normal skin color. No rash. Extremities: Extremities exhibit normal ROM. Extremities nontender. Neuro: Oriented X 3. No motor deficit. No sensory deficit. PROGRESS AND PROCEDURES Course of Care: After topical benzocaine anesthesia the dental abscess was aspirated with an 18g needle, little return. 10 minute discussion on teratogenic effects of medicatons and patient wants to proceed with antibiotics and pain medication. Patient/family counseled. Disposition: Discharged. Condition: stable. CLINICAL IMPRESSION Periapical dental abscess with sinus tract. 9 week . INSTRUCTIONS Apply moist heat for 15-20 minutes three times a day for one weeks until better. Drink plenty of fluids. Warnings: Further evaluation is necessary. SEDATIVE MEDICATION: You were given sedative medication during your visit. Do not drive or operate dangerous machinery. GENERAL WARNINGS: Return or contact your physician immediately if your condition worsens or changes unexpectedly, if not improving as expected, or if other problems arise. Prescription Medications: Hydrocodone/APAP 5mg/325mg: take 1 to 2 orally every 6 hours as needed for pain. Dispense fifteen (15). No refills. Cleocin 300 mg: take 1 capsule orally every 6 hours for 7 days. No refills. Substitution is permissible. Follow-up: Follow up with a dentist. Call for the next available appointment. Understanding of the discharge instructions verbalized by patient. Discharge instructions reviewed (family). Follow-up with: [facility], , , [address], [facility], [id number] Follow up Wednesday in three days. Call for the next available appointment. Reason for referral: for dental labscess. (Electronically signed by Trevor Zavala MD 08/19/2016 21:16)
--- NOTE | 2016-08-19 21:16 | ED MAR SUMMARY ---
..... Medication Administration Record [facility] [address] [place] [address] Patient: BRIAN BROWN Visit ID: [id number] 21y, F Weight: 86.1 kg Height/Length: 65 in BMI: 31.6 ALLERGIES: Penicillins Given 11:08/18/2016 Mil Nieto RDelmi Medication Administered: HYDROCODONE-APAP [PO] (HYDROCODONE-ACETAMINOPHEN), Dose: 2 tab 10/650 mg Tablets PO. Medication Ordered: Hydrocodone-APAP PO 10/650 mg (NOW). Given 11:08/18/2016 Mil Nieto, RPhyllisNPhyllis Medication Administered: CLEOCIN [PO] (CLINDAMYCIN HCL), Dose: 300 mg PO. Medication Ordered: Cleocin PO 300 mg (NOW).
--- NOTE | 2016-08-19 21:16 | ED MED RECONCILIATION SUMMARY ---
Patient: BRIAN BROWN Medication Reconciliation Report [facility] VisitID: [id number] [place] [address] 21y, F Registration Date/Time: 08/18/2016 Weight: 86.1 kg Height/Length: 65 in. BMI: 31.6 ALLERGIES: Penicillins The patient's Home Medications are listed below: NONE. The source(s) of the original Home Medication information: patient The following Medications were given to the patient in the Emergency Department: Hydrocodone-APAP [PO] PO 2 tab, administered: 08/18/2016 11:01:00 AM Cleocin [PO] PO 300 mg, administered: 08/18/2016 11:01:00 AM The following Medications were prescribed to the patient: Hydrocodone/APAP 5mg/325mg: take 1 to 2 orally every 6 hours as needed for pain. Dispense fifteen (15). No refills. -- Trevor Zavala MD Cleocin 300 mg: take 1 capsule orally every 6 hours for 7 days. No refills. Substitution is permissible. -- Trevor Zavala MD
--- NOTE | 2016-08-19 21:16 | ED MAR SUMMARY ---
..... Medication Administration Record [facility] [address] [place] [address] Patient: BRIAN BROWN Visit ID: [id number] 21y, F Weight: 86.1 kg Height/Length: 65 in BMI: 31.6 ALLERGIES: Penicillins Given 11:08/18/2016 Mil Nieto RDelmi Medication Administered: HYDROCODONE-APAP [PO] (HYDROCODONE-ACETAMINOPHEN), Dose: 2 tab 10/650 mg Tablets PO. Medication Ordered: Hydrocodone-APAP PO 10/650 mg (NOW). Given 11:08/18/2016 Mil Nieto, RPhyllisNPhyllis Medication Administered: CLEOCIN [PO] (CLINDAMYCIN HCL), Dose: 300 mg PO. Medication Ordered: Cleocin PO 300 mg (NOW).
--- NOTE | 2016-08-19 21:16 | ED DISCHARGE INSTRUCTIONS ---
Patient: BRIAN BROWN General Instructions [facility] VisitID: [id number] [address], [place] [address] 21y, F Registration Date/Time: 08/18/2016 Periapical dental abscess with sinus tract. 9 week . INSTRUCTIONS Apply moist heat for 15-20 minutes three times a day for one weeks until better. Drink plenty of fluids. Warnings: Further evaluation is necessary. SEDATIVE MEDICATION: You were given sedative medication during your visit. Do not drive or operate dangerous machinery. GENERAL WARNINGS: Return or contact your physician immediately if your condition worsens or changes unexpectedly, if not improving as expected, or if other problems arise. Prescription Medications: Hydrocodone/APAP 5mg/325mg: take 1 to 2 orally every 6 hours as needed for pain. Dispense fifteen (15). No refills. Cleocin 300 mg: take 1 capsule orally every 6 hours for 7 days. No refills. Substitution is permissible. Follow-up: Follow up with a dentist. Call for the next available appointment. Understanding of the discharge instructions verbalized by patient. Discharge instructions reviewed (family). Follow-up with: [facility], , , [address], [place], [id number] Follow up Wednesday in three days. Call for the next available appointment. Reason for referral: for dental labscess. ADDITIONAL INFORMATION Dental Abscess With Facial Cellulitis A dental abscess is an infection at the base of a tooth. When this is untreated, it spreads to the gum near the tooth causing swelling and pain. More severe infections cause facial swelling as the bacteria spread to the nearby tissues of the face. This is a very serious condition. Once the swelling begins, it can spread rapidly. A dental abscess usually starts with a crack or cavity in the tooth. The pain is often made worse by drinking hot or cold fluids, or biting on hard foods and may spread from the tooth to the ear or jaw on the same side. Home Care: Avoid hot and cold foods and liquids since your tooth may be sensitive to temperature changes. If your tooth is chipped or cracked, or if there is a large open cavity, apply oil of cloves or oil of peppermint (available dxyt-vyf-vxcunff in drug stores) directly to the tooth to reduce pain. Some pharmacies carry an wozf-ceg-yrmulso toothache kit. This contains a paste, which can be applied over the exposed tooth to decrease sensitivity. A cold pack on your jaw over the sore area may help reduce pain. You may use acetaminophen (Tylenol) or ibuprofen (Motrin, Advil) to control pain, unless another medicine was prescribed. [NOTE: If you have chronic liver or kidney disease or ever had a stomach ulcer or GI bleeding, talk with your doctor before using these medicines.] An antibiotic will be prescribed. Take it exactly as directed. Do not miss any doses. Follow-Up as advised with a dentist or oral surgeon. Severe cases of cellulitis must be checked again within 24 hours. Once an infection occurs in a tooth, it will continue to be a problem until the infection is drained (surgery or root canal) or the tooth is pulled. Get Prompt Medical Attention if any of the following occur: Swelling spreads to the upper half of your face or your eyelids begin to swell shut Pain worsens or spreads to the neck Fever of 100.4F (38C) or higher, or as directed by your healthcare provider Unusual drowsiness, headache or a stiff neck; weakness or fainting Difficulty swallowing or breathing You have been given the following additional information: Dental Abscess W/ Facial Cellulitis (Electronically signed by Trevor Zavala MD 08/19/2016 21:16)
--- NOTE | 2016-08-19 21:16 | ED DISCHARGE INSTRUCTIONS ---
Patient: BRIAN BROWN General Instructions [facility] VisitID: [id number] [address], [place] [address] 21y, F Registration Date/Time: 08/18/2016 Periapical dental abscess with sinus tract. 9 week . INSTRUCTIONS Apply moist heat for 15-20 minutes three times a day for one weeks until better. Drink plenty of fluids. Warnings: Further evaluation is necessary. SEDATIVE MEDICATION: You were given sedative medication during your visit. Do not drive or operate dangerous machinery. GENERAL WARNINGS: Return or contact your physician immediately if your condition worsens or changes unexpectedly, if not improving as expected, or if other problems arise. Prescription Medications: Hydrocodone/APAP 5mg/325mg: take 1 to 2 orally every 6 hours as needed for pain. Dispense fifteen (15). No refills. Cleocin 300 mg: take 1 capsule orally every 6 hours for 7 days. No refills. Substitution is permissible. Follow-up: Follow up with a dentist. Call for the next available appointment. Understanding of the discharge instructions verbalized by patient. Discharge instructions reviewed (family). Follow-up with: [facility], , , [address], [place], [address] Follow up Wednesday in three days. Call for the next available appointment. Reason for referral: for dental labscess. ADDITIONAL INFORMATION Dental Abscess With Facial Cellulitis A dental abscess is an infection at the base of a tooth. When this is untreated, it spreads to the gum near the tooth causing swelling and pain. More severe infections cause facial swelling as the bacteria spread to the nearby tissues of the face. This is a very serious condition. Once the swelling begins, it can spread rapidly. A dental abscess usually starts with a crack or cavity in the tooth. The pain is often made worse by drinking hot or cold fluids, or biting on hard foods and may spread from the tooth to the ear or jaw on the same side. Home Care: Avoid hot and cold foods and liquids since your tooth may be sensitive to temperature changes. If your tooth is chipped or cracked, or if there is a large open cavity, apply oil of cloves or oil of peppermint (available jlqy-abv-xxgklvk in drug stores) directly to the tooth to reduce pain. Some pharmacies carry an cuzi-gnk-yugajla toothache kit. This contains a paste, which can be applied over the exposed tooth to decrease sensitivity. A cold pack on your jaw over the sore area may help reduce pain. You may use acetaminophen (Tylenol) or ibuprofen (Motrin, Advil) to control pain, unless another medicine was prescribed. [NOTE: If you have chronic liver or kidney disease or ever had a stomach ulcer or GI bleeding, talk with your doctor before using these medicines.] An antibiotic will be prescribed. Take it exactly as directed. Do not miss any doses. Follow-Up as advised with a dentist or oral surgeon. Severe cases of cellulitis must be checked again within 24 hours. Once an infection occurs in a tooth, it will continue to be a problem until the infection is drained (surgery or root canal) or the tooth is pulled. Get Prompt Medical Attention if any of the following occur: Swelling spreads to the upper half of your face or your eyelids begin to swell shut Pain worsens or spreads to the neck Fever of 100.4F (38C) or higher, or as directed by your healthcare provider Unusual drowsiness, headache or a stiff neck; weakness or fainting Difficulty swallowing or breathing You have been given the following additional information: Dental Abscess W/ Facial Cellulitis (Electronically signed by Trevor Zavala MD 08/19/2016 21:16)
--- NOTE | 2016-08-19 21:16 | ED MED RECONCILIATION SUMMARY ---
Patient: BRIAN BROWN Medication Reconciliation Report [facility] VisitID: [id number] [place] [address] 21y, F Registration Date/Time: 08/18/2016 Weight: 86.1 kg Height/Length: 65 in. BMI: 31.6 ALLERGIES: Penicillins The patient's Home Medications are listed below: NONE. The source(s) of the original Home Medication information: patient The following Medications were given to the patient in the Emergency Department: Hydrocodone-APAP [PO] PO 2 tab, administered: 08/18/2016 11:01:00 AM Cleocin [PO] PO 300 mg, administered: 08/18/2016 11:01:00 AM The following Medications were prescribed to the patient: Hydrocodone/APAP 5mg/325mg: take 1 to 2 orally every 6 hours as needed for pain. Dispense fifteen (15). No refills. -- Trevor Zavala MD Cleocin 300 mg: take 1 capsule orally every 6 hours for 7 days. No refills. Substitution is permissible. -- Trevor Zavala MD
== END 2016-08-18 11:10 | disposition home or self-care (01) ==
LOC: ED SRH 09:46
DX: K04.6 Periapical abscess with sinus (principal); Z33.1 Pregnant state, incidental; Z3A.09 9 weeks gestation of pregnancy; Z88.0 Allergy status to penicillin